=== PATIENT | male | born 1945 | race Caucasian/White ===

== ENCOUNTER 2020-10-29 22:33 | Emergency (ER) | payer MEDICARE, SELFPAY ==
--- NOTE | ~2020-10-29 | XR_ITS ---
EXAMINATION: XR chest 2V EXAM DATE: 10/30/2020 00:07 INDICATION: Fever. TECHNIQUE: Frontal and lateral projections of the chest obtained and reviewed. Comparison is made to prior examination from 07/21/2019. FINDINGS: The lungs are clear. There are no pleural effusions. The cardiomediastinal silhouette is within normal limits. There is no pneumothorax suspected. The bones and soft tissues are unremarkab le. Sternotomy wires are present without findings to suggest sternal dehiscence. Aortic valve repla cement. IMPRESSION: No acute cardiopulmonary findings. Reviewed, dictated and finalized at location A.
[2020-10-29 22:36] VITALS: BP 147/60; PULSE 113; RESP 20; TEMP 37.8; O2SAT 96
--- NOTE | 2020-10-29 23:41 | WPDEDEXPGENP ---
HPI - General Ped General Chief complaint: Fever Stated complaint: Fever Time Seen by Provider: 10/29/20 23:37 Source: RN notes reviewed History of Present Illness HPI narrative: Patient presents emergency department from home for a fever. Patient states that he was feeling fine all day today and began to have some chills and then a fever around 1830 this evening. He states he took ibuprofen at home for the symptoms. States he did have some mild rhinorrhea with the symptoms but denies any ear pain, sore throat, chest pain, cough, abdominal pain, nausea, vomiting, diarrhea or any other symptoms. He states he has had both of his Covid vaccines with the second dose of his Materna vaccine October 03 Related Data Home Medications Medication Instructions Recorded Confirmed Tylenol PM Extra Strength 1,000 tablet PO PRN PRN 07/21/19 07/21/19 aspirin 81 mg PO DAILY 07/21/19 07/22/19 atorvastatin 40 mg PO HS 07/21/19 07/22/19 candesartan 4 mg PO DAILY 07/21/19 07/22/19 ferrous sulfate [Iron (ferrous 325 mg PO DAILY 07/21/19 07/22/19 sulfate)] flaxseed oil 1,000 mg PO DAILY 07/21/19 07/22/19 hydrochlorothiazide 25 mg PO DAILY 07/21/19 07/22/19 metoprolol tartrate 50 mg PO Q12H 07/21/19 07/22/19 niacinamide [Niacin (niacinamide)] 1,000 mg PO DAILY 07/21/19 07/22/19 Allergies Allergy/AdvReac Type Severity Reaction Status Date / Time No Known Allergies Verified 10/29/20 22:40 NKFA Allergy Unknown Unknown Uncoded 10/29/20 22:40 Pediatric Review of Systems : Review of Systems: Gen.: See HPI Eyes: Denies eye pain or visual change ENT: Reports rhinorrhea Respiratory: Denies shortness of breath or cough CV: Denies chest pain or palpitations GI: Denies abdominal pain nausea, emesis or diarrhea denies burning, urgency, frequency or hematuria Musculoskeletal: Denies back pain or muscle pain Neuro: Denies numbness, tingling, weakness or focal weakness Skin: Denies rash Except as documented, all other systems reviewed and negative PMFSH Past Medical History Medical History (Updated 10/30/20 @ 03:32 by Nasim Alexander DO) Hyperlipidemia Hypertension Inguinal hernia Pre-diabetes Seasonal allergies Surgical History Surgical History H/O aortic valve replacement (~2017) H/O left inguinal hernia repair (~2013) H/O prostatectomy (~2002) Family History Family History Father Pre-diabetes Social History Social History Social History: Patient lives at home with , Alva, whom he designates as his POA. PCP is Dr. López. He is retired and normally ambulates without assistance. He wishes to be listed as a full code Smoking status: Former smoker Tobacco type: cigars Alcohol intake: current Drinks per week: 8 Substance use: never Gender identity (if verbalized by the patient): Male Spiritual care concerns: Yes Agree to blood products: Yes Pediatric Exam Narrative: Physical exam: APPEARANCE: No acute distress, nontoxic, resting in bed EYES: EOMI HEENT: Normocephalic, atraumatic, TMs clear bilaterally RESPIRATORY: No respiratory distress Clear to auscultation bilaterally with no rhonchi wheezing or rales. CARDIOVASCULAR: Regular rate and rhythm without murmurs rubs or gallops. ABDOMINAL: Soft, nontender, nondistended, no rebound or guarding MUSCULOSKELETAl: Moves all extremities. No clubbing, cyanosis or edema. NEURO: Awake and alert x 4Following commands, speech normal, no focal deficits SKIN:: Warm, dry. No rashes lesions or abrasions PSYCHIATRIC: Normal affect/mood, Course Course Emergency Course: Patient states he is feeling much better this time I called and discussed with Dr. López following that I sent the chest x-ray for review by [facility]. He does request the patient have a Covid swab Vital Signs Vital signs: Kristen
[2020-10-29] MEDS: ACETAMINOPHEN 500 MG TABLET 1000 MG PO (23:53)
[2020-10-29] MEDS: SODIUM CHLORIDE 0.9% IV 1,000 ML 999 ML IV CONT (23:53)
[2020-10-30 00:05] LABS: Basophils Percent Auto 0.2 % (0.2-1.2); Eosinophils Percent Auto 0.2 % (0-4.4); Hematocrit 32.1 % (42.0-52.0); Immature Granulocyte Absolute 0.05 K/mm3 (0.00-0.031); Immature Granulocyte Percent A 0.4 % (0-0.5); Lymphocytes Absolute Auto 1.99 K/mm3 (0.9-3.2); Lymphocytes Percent Auto 16.1 % (18.3-44.2); Mean Corpuscular HGB Conc 34.3 g/dl (32-36); Mean Corpuscular Hemoglobin 32.5 pg (26-34); Monocytes Percent Auto 7.8 % (2.6-8.5); Neutrophils Absolute Auto 9.3 K/mm3 (1.3-6.7); Neutrophils Percent Auto 75.3 % (45.5-73.1); Platelet Count Result 231 k/mm3 (150-375); Red Blood Count 3.38 M/mm3 (4.6-6.20); Red Cell Distribution Width 12.1 % (11.5-14.5); White Blood Count 12.4 K/mm3 (4.5-10.0)
[2020-10-30 00:16] LABS: Partial Thromboplastin Time 27.5 SECONDS (22.3-36.8); Prothrombin Time 13.5 Seconds (11.1-14.7)
[2020-10-30 00:17] LABS: Alanine Aminotransferase 27 U/L (4-50); Albumin Level 4.1 g/dL (3.5-5.1); Alkaline Phosphatase 104 U/L (38-126); Anion Gap 8 mmol/L (8-16); Aspartate Amino Transferase 43 U/L (17-59); Bilirubin,Total 1.1 mg/dL (0.2-1.3); Blood Urea Nitrogen 26 mg/dL (9-20); Calcium 8.9 mg/dL (8.4-10.2); Carbon Dioxide 29 mmol/L (22-30); Chloride 90 mmol/L (98-107); Estimated CRCL calculation 54 ml/min; Estimated Glomerular Filt Rate 49; Glucose 134 mg/dL (75-110); Potassium 3.9 mmol/L (3.4-5.0); Sodium 127 mmol/L (137-145)
[2020-10-30 00:36] LABS: Lactic Acid Reflex 1.6 mmol/L (0.7-2.1)
[2020-10-30 00:54] LABS: Add Urine Microscopic? YES; Appearance Urine Cloudy (Clear); Bacteria Urine Trace /hpf; Bilirubin Urine Negative (Negative); Blood Urine Negative (Negative); Color Urine Amber (Yellow); Glucose Urine UA Negative (Negative); Hyaline Casts Urine 30-49 /lpf; Ketones Urine Negative (Negative); Leukocyte Esterase Ur Negative LEU/UL (Negative); Mucus Urine Few /lpf; Nitrate Urine Negative (Negative); Protein Urine 1+ mg/dL (Negative); RBC Urine 0-2 /hpf (0-2); Squamous Epithelial Cell Urine Few /hpf (Few); WBC Urine 0-3 /hpf
[2020-10-30 01:15] VITALS: BP 117/57; PULSE 88; RESP 18; TEMP 37.3; O2SAT 99
--- NOTE | 2020-10-30 01:15 | PC.NURSE ---
Pt reports feeling much better. No new s/s.
--- NOTE | 2020-10-30 02:42 | PC.NURSE ---
is unhappy with the long wait time for a disposition. Pt sleeping. No distress. informed of current ER high acuity and census.
[2020-10-30 02:45] VITALS: BP 121/62; PULSE 82; RESP 18; O2SAT 98
[2020-10-30 03:40] VITALS: BP 128/62; PULSE 78; RESP 18; O2SAT 98
[2020-10-30 19:42] LABS: SARS-CoV-2 RNA PCR Negative
== END 2020-10-30 03:40 | disposition home or self-care (01) ==
PROVIDERS: Emergency Provider Emergency Medicine; PCP Family Medicine
DX: R50.9 Fever, unspecified (principal); Z20.822 Contact with and (suspected) exposure to COVID-19; E78.5 Hyperlipidemia, unspecified; I10 Essential (primary) hypertension; R73.03 Prediabetes; Z95.2 Presence of prosthetic heart valve; Z90.79 Acquired absence of other genital organ(s); Z79.82 Long term (current) use of aspirin; Z87.891 Personal history of nicotine dependence
CPT/HCPCS: 36415; 71046; 80053; 81001; 83605; 85025; 85610; 85730; 96360; 99283; A9270; C9803; J7030; U0003; U0005

== ENCOUNTER → 2021-02-12 10:18 | Outpatient (REF) | payer MEDICARE, SELFPAY | LOC: ANHLAB 10:18 | PROVIDERS: PCP Family Medicine; Visit Provider Nurse Practitioner | DX: C44.329 Squamous cell carcinoma of skin of other parts of face (principal) | CPT/HCPCS: 88305; 88331 ==

== ENCOUNTER → 2022-02-04 13:38 | Outpatient (REF) | payer MEDICARE, SELFPAY | LOC: ANHLAB 13:38 | PROVIDERS: PCP Family Medicine; Visit Provider Nurse Practitioner | DX: D22.62 Melanocytic nevi of left upper limb, including shoulder (principal) | CPT/HCPCS: 88305 ==

== ENCOUNTER → 2022-02-28 10:34 | Outpatient (REF) | payer MEDICARE, SELFPAY | LOC: ANHLAB 10:34 | PROVIDERS: PCP Family Medicine; Visit Provider Nurse Practitioner | DX: D49.9 Neoplasm of unspecified behavior of unspecified site (principal) | CPT/HCPCS: 88305 ==

== ENCOUNTER 2022-08-08 09:00 | Outpatient (NON) | payer MEDICARE, SELFPAY | END 2022-08-08 09:01 | disposition home or self-care (01) | LOC: ANHLAB 08-09 12:33 | PROVIDERS: PCP Family Medicine; Visit Provider Nurse Practitioner | DX: L82.0 Inflamed seborrheic keratosis (principal); L57.0 Actinic keratosis | CPT/HCPCS: 88305 ==

== ENCOUNTER 2022-11-05 09:00 | Outpatient (NON) | payer MEDICARE, SELFPAY | END 2022-11-05 09:01 | disposition home or self-care (01) | LOC: ANHLAB 11-06 12:10 | PROVIDERS: PCP Family Medicine; Visit Provider Nurse Practitioner | DX: L81.4 Other melanin hyperpigmentation (principal); L90.5 Scar conditions and fibrosis of skin | CPT/HCPCS: 88305 ==

== ENCOUNTER 2023-05-08 15:28 | Outpatient (NON) | payer MEDICARE, SELFPAY | END 2023-05-08 15:29 | disposition home or self-care (01) | LOC: ANHLAB 15:29 | PROVIDERS: PCP Family Medicine; Visit Provider Nurse Practitioner | DX: D22.5 Melanocytic nevi of trunk (principal) | CPT/HCPCS: 88305 ==